=== PATIENT | male | born 1950 | race Caucasian/White ===

== ENCOUNTER 2016-06-16 10:02 | Inpatient (IN) | payer OTHER ==
[2016-06-16] VITALS (8 sets, daily range): BP systolic 130–160; BP diastolic 79–94; PULSE 58–88; RESP 10–20; O2SAT 96–98
[~2016-06-16] VITALS: Ht 195.6 cm; Wt 93.8 kg
--- NOTE | 2016-06-16 06:52 | PCM.HPANE ---
Patient Data Surgeon Admitting Provider: Attending Provider:Rand Echavarria MD Primary Care Physician:Avril Saldana MD Other Provider: Reason for Visit Prostate Cancer PROSTATE CANCER Ht/WT & BMI Height (Feet): 6 Height (Inches): 5 Weight (Kilograms): 102.058 Body Mass Index 26.00 Allergies Coded Allergies: Sulfa (Sulfonamide Antibiotics) (Verified Allergy, Severe, RASH, 06/11/16) lisinopril (Verified Allergy, Severe, cough, 06/16/16) buspirone (Verified Allergy, Unknown, UNKNOWN, 06/11/16) cyclobenzaprine (Verified Allergy, Unknown, UNKNOWN, 06/11/16) metoprolol (Verified Allergy, Unknown, UNKNOWN, 06/11/16) venlafaxine (Verified Allergy, Unknown, UNKNOWN, 06/11/16) escitalopram (Verified Adverse Reaction, Severe, HTN, 06/11/16) Past Anesthesia History Anesthesia History: Denies:: Abnormal Airway, Anesthesia Reactions, Difficult Intubation, Fam Anesthesia Reaction, Fam Malignant Hypertherm, Malignant Hyperthermia Diabetes History Hx Diabetes?: No MRSA MRSA: No Medications Hypertension Medication: Yes (AMLODIPINE) Reported Medications Lorazepam 1 Mg Tablet1 Mg PO TID PRN For Anxiety Ref 0 06/11/16 Amlodipine 10 Mg [id number] Mg PO DAILY Ref 0 06/11/16 Zolpidem (Ambien)10 Mg [id number] Mg PO HS PRN For Insomnia Ref 0 06/11/16 Discontinued Reported Medications Duloxetine-Expunged Drug, Do Not Renew! (Cymbalta-Expunged Drug, Do Not Renew!) 30 Mg Capsule.dr60 Mg PO DAILY #60 CAP Ref 0 For Mental Wellbeing. 05/30/13 AmLODIPine-Expunged Drug, Do Not Renew! 10 Mg Cadvln32 Mg PO DAILY 05/30/13 [Ibuprofen] No Conflict Check TAKE 1-2 TABLETS BY MOUTH EVERY 4-6 HOURS NEEDED WITH FOOD 03/03/13 Temazepam-Expunged Drug, Do Not Renew! (Restoril-Expunged Drug, Do Not Renew!) 15 Mg [id number] Mg PO HS PRN 03/03/13 History History of ENT Problems?: Yes HEENT History: Positive for:: Sinus Problem (ALLERGIC RHINITIS) Denies:: Abnormal Airway Difficult Intubation Hearing Problem Hx of Heart Problems?: Yes Cardiovascular History: Positive for:: Hypertension (HYPERLIPIDEMIA) Denies:: Irregular Heartbeat Hx of Respiratory Problem?: Yes Respiratory History: Positive for:: Use of C-PAP Machine (MARILEE+ W/ CPAP SLEEP STUDY 06/2010) Hx Neurologic Problems?: No Neurological History: Denies:: CVA Hx of GI Problems?: Yes Gastrointestinal History: Denies:: Rectal Bleeding (HX COLON POLYPS, HEMORRHOIDS) Hx of Problems?: Yes Other Pertinent History: ED Male Hx: Positive for:: Prostate Problems (PROSTATE CA=CURRENT PROBLEM) Denies:: Scrotal Mass Testicular Surgery Skin History: Denies:: History Skin Disorders? Pressure Ulcers Hx Musculoskeletal Problems?: Yes Musculoskeletal History: Positive for:: Musculoskeletal Trauma (S/P RT KNEE SCOPE HX FX 5TH METATARSAL,TRIGGER FINGER,RT SHOULDER PAIN) Osteoarthritis (SPINE) Denies:: Back Injury (SPINAL STENOSIS) Hx of Psycho/Social Problems?: Yes Psycho Social History: Positive for:: Anxiety Hx Depression (REMOTE) Hx Surgeries?: Yes (L3-L5 LAMI,2 OTHER LUMBAR SURGERIES,R KNEE SCOPE) Hx Any Other Health Problems?: Yes Other History: Positive for:: Cancer (PROSTATE) Denies:: Endocrine Disease Hospitalization Thyroid Disease Hx Diabetes: No Hx Alcohol Use: YesAlcoholic Drinks Per Day: 2/DAYHx Substance Use: NoHave You Smoked inLast 12 mo: No Stop/Bang S-Snoring: Do You Snore Loudly: Yes T-Tired: feel tired, fatigued: Yes O-Obsered: Observed not breath: Yes P-Blood Pressure: treated: Yes B- Body Mass Index > 35 kg/m2: No A- Age over 50: Yes N- Neck Large Circumference: No G- Gender Male: Yes MARILEE Total Score: 6 Risk Assessment Category Category 1A: Patient has history of documented sleep apnea, and HAS NOT received any narcotic, sedative or anesthesia administration during this stay. Category 1B: Patient has history of documented sleep apnea, and HAS received any narcotic , sedative or anesthesia administration during this stay Category 2: Patient has SUSPECTED Obstructive Sleep Apnea, and HAS received any narcotic , sedative or anesthesia administration during this stay. Category 3: Patient has SUSPECTED Obstructive Sleep Apnea and HAS NOT received narcotic, sedative or anesthesia administration during this stay. Category 4: Outpatient in Procedural Areas with known sleep apnea or who screen positive for High Risk via the STOP/BANG questionnaire. Exam Exam General Appearance: Alert, Oriented X3, Cooperative, No Acute Distress HEENT/AIRWAY: MP 2, Neck Movement (from), Mouth Opening (wnl) Lungs: Clear to Auscultation Heart: Exam Unremarkable Plan Impression Patient chart reviewed, patient interviewed and anesthestic plan with risks, benefits, and alternatives discussed, and informed consent obtained. ASA Physical Status: ASA2 Mod Systemic Disease Anesthetic Plan: GA, SAB Bene/Risks/Altern/Consents: Yes HP Complete Prior to Induction: Yes Francisco Javier Farzier MD Jun 16, 2016 06:52
[~2016-06-16 10:02] MED LIST: AMLO10TA3 PO; Acetaminophen IV 1,000 MG in IV Premix 1 EACH IV ONE; Bupivacaine Liposome 1.3% 20 mL Inj INFILTRATE SCH; CeFAZolin Inj 2 GM in IV Premix 1 EACH IV ONE; LORA1TAB PO; Lactated Ringer's 1,000 ML IV ONE; ZLP10T PO
[2016-06-16 11:08] LABS: BASOPHILS % (AUTO) 0.2 % (0-3); EOSINOPHILS % (AUTO) 1.3 % (0-5); MONOCYTES % (AUTO) 8.4 % (4-12); Mean Corpuscular Hemoglobin 30.9 pg (27.0-35.0); Mean Corpuscular Volume 88.7 fL (81-100); NEUTROPHILS % (AUTO) 70.1 % (40-74); Platelet Count 272 bil/L (150-400)
[2016-06-16] MEDS ORDERED: Ondansetron 2 mg/mL 2 mL Inj IVPUSH PRN ×2 (12:30→14:45)
[2016-06-16] MEDS ORDERED: fentaNYL-PF 50 mCg/mL 2 mL Inj IVPUSH PRN (12:30)
[2016-06-16] MEDS ORDERED: EPHEDrine Sulfate 50 mg/mL Inj IVPUSH PRN ×2 (12:30→12:50)
[2016-06-16] MEDS ORDERED: EPHEDrine Sulfate 50 mg/mL Inj IM PRN (12:30)
[2016-06-16] MEDS ORDERED: hydrOXYzine Inj 25 MG/1 mL SDV IM PRN (12:30)
[2016-06-16] MEDS ORDERED: Dexamethasone 4 mg/mL Inj IVPUSH PRN (12:30)
[2016-06-16] MEDS ORDERED: Lactated Ringer's 1,000 ML IV SCH (12:30)
[2016-06-16] MEDS ORDERED: Phenylephrine 10,000 mCg/mL Inj IVPUSH PRN (12:30)
[2016-06-16] MEDS ORDERED: HYDROmorphone 1 mg/mL Inj IVPUSH PRN ×2 (12:30→14:45)
[2016-06-16] MEDS ORDERED: hydrALAZINE 20 mg/mL Inj IVPUSH PRN (12:30)
[2016-06-16] MEDS ORDERED: Atropine 0.4 mg/mL Inj IVPUSH PRN (12:30)
[2016-06-16] MEDS ORDERED: Lactated Ringer's 500 ML IV PRN (12:30)
[2016-06-16] MEDS ORDERED: Gelatin Sponge SZ 50 TOPICAL ONE (13:30)
[2016-06-16 14:11] LABS: APPEARANCE,URINE HAZY (CLEAR,HAZY); COLOR,URINE STRAW (YELLOW); OCCULT BLOOD,URINE SMALL (NEGATIVE); UROBILINOGEN,URINE NORMAL (NORMAL)
[2016-06-16] MEDS ORDERED: MetoCLOpramide 5 mg/mL 2 mL Inj IVPUSH PRN (14:45)
--- NOTE | 2016-06-16 15:57 | PCM.ANEP1 ---
Post Anesthesia Phase 1 PACU Phase 1 Assessment Vital Signs Vital Signs Date Time Temp Pulse Resp B/P Pulse Ox O2 Delivery O2 Flow Rate FiO2 06/16/16 15:35 58 12 136/80 97 Room Air 06/16/16 15:20 64 10 153/80 96 Room Air 06/16/16 15:07 66 10 130/80 96 Room Air 06/16/16 15:00 36.3 76 14 142/88 96 Room Air 06/16/16 10:25 36.5 82 16 160/94 98 Room Air 06/16/16 10:22 CPAP/BIPAP Anesthetic Administered: GA Level of Alertness: Awake, talking ALMAGUER's with Equal Strength: No (moves lower extremeties, Feet.) Pain: No Nausea or Vomiting: No Oxygen Delivery: Room Air Lungs: Normal Air Movement Francisco Javier Frazier MD Jun 16, 2016 15:57
[2016-06-16] MEDS ORDERED: Morphine PF 1 mg/mL 10 mL Inj ONE (16:06)
[2016-06-16] MEDS ORDERED: fentaNYL-PF 50 mCg/mL 2 mL Inj ONE (16:06)
--- NOTE | 2016-06-16 17:03 | NUR ---
Arrival on OSC Pt transferred to OSC from PACU at 1555 hrs. Alert and oriented x 3. VSS. Two peripheral IVs patent and asymptomatic. No complaints of pain. All personal possessions with pt and placed in room closet. Family with pt. Care continues.
--- NOTE | 2016-06-16 17:45 | PCM.ANEP2 ---
Post Anesthesia Evaluation ASA/CMS Post Anesthesia VS in Patient's Normal Range?: Yes Resp Stable; Airway Patent?: Yes CV Function & Hydration Stable: Yes Mental Status Recovered?: Yes Pain control Satisfactory?: Yes N/V Control Satisfactory?: Yes Francisco Javier Frazier MD Jun 16, 2016 17:45
[2016-06-16] MEDS: Lactated Ringer's 1,000 ML IV SCH ×2 (18:21→22:43)
[2016-06-16] MEDS: Acetaminophen IV 1,000 MG in IV Premix 1 EACH IV SCH (20:35)
[2016-06-17 05:37] VITALS: BP 140/83; PULSE 67; RESP 18; O2SAT 98
--- NOTE | 2016-06-17 05:52 | NUR ---
Pain Pt states APAP does not relieve all pain, oral pain meds have good relief. Both IVs patent, forearm running until completion of 1L LR and then saline lock- patient is drinking sufficient water and ice chips. Urine from moderately pink to clear with pink tinge. GI hypoactive, no complaints of N/V/D. Incisions CDI. Family visiting and brought him belongings and CPAP with adequate cord- noted in chart document. Care continues
[2016-06-17] MEDS: Lactated Ringer's 1,000 ML IV SCH ×3 (06:43→22:43)
--- NOTE | 2016-06-17 07:23 | PROG NOTE ---
[address] [address] PROGRESS NOTE PATIENT: DORCAS SHORT : 1950 MR#: [id number] ADMIT: 06/16/2016 JOB ID: [id number] DATE: 06/17/2016 PROGRESS NOTE: Postop day #1 status post radical retropubic prostatectomy. SUBJECTIVE: Overall an uneventful night. He did not sleep well due to incumbrance by tubing and monitoring and interruptions by nursing staff. No significant pain complaints. He tolerated a general diet for dinner. He is passing small flatus. OBJECTIVE: Afebrile. Vital signs are stable; 8 hour IMER output 120 cc; 8 hour urine output 2230 cc. He is resting comfortably and sitting up in bed in no distress. Head and neck exam unremarkable. Chest equal and nonlabored bilaterally. Heart rate is regular. Abdomen is scaphoid, soft. Dressing and IMER drain intact (serosanguineous). Estrada very light pink coloration with no clots. Genitalia are status post circumcision, unremarkable. Extremities no pallor, edema, clubbing, or cyanosis. SCDs are in place. IMPRESSION: Stable postoperative day #1 status post radical prostatectomy. PLAN: 1. Increase diet and activity. 2. Catheter care and use instruction. 3. Pathology pending.
--- NOTE | 2016-06-17 07:29 | OP ---
[address] [address] OPERATIVE REPORT PATIENT: DORCAS SHORT : 1950 MR#: [id number] ADMIT: 06/16/2016 JOB ID: [id number] DATE OF SURGERY: 06/16/2016 PREOPERATIVE DIAGNOSIS(ES): Carcinoma of the prostate. POSTOPERATIVE DIAGNOSIS(ES): Carcinoma of the prostate. OPERATION PERFORMED: Radical retropubic prostatectomy, LigaSure Impact device. SURGEON: Rand Echavarria MD ANESTHESIOLOGIST: Francisco Javier Frazier MD SILK EXAMINER: ELIZABETH Amador ANESTHESIA: General plus Duramorph spinal. PROCEDURE SUMMARY: The patient was positioned in supine and the abdomen, genitalia, and groin were prepped and draped in sterile fashion. A 22-Cameroonian Estrada catheter was inserted in the lower urinary tract. A midline infraumbilical incision was then made through the structures of the midline abdominal wall to the preperitoneal space. The anterior pelvis and the space of Retzius were then exposed using blunt technique and was extended down the lateral aspects of the prostate. Next, hemostatic jwduyl-iv-iclet ligatures of 2-0 Biosyn were then placed distally at the dorsal venous complex and Santorini's plexus. Additional interrupted jisjkh-rk-cqspzd were placed dorsally at the proximal prostate, as well as laterally for around large tributary veins. Next, a transverse prostatotomy was performed through the capsule and the adenoma was then identified and developed using a combination of blunt and sharp dissection. The adenoma was delivered from the prostate proper and was submitted to Pathology for routine gross and microscopic examination. The prostatic defect was then packed with a lap sponge and held under pressure for about 5 minutes. Next, the bladder neck was repaired using interrupted vdwpci-os-hskbx 2-0 Biosyn. The posterior bladder neck was then brought down distally and sutured to the capsule just proximal to the membranous urethra using a wsoaax-sz-uaamn stitch. The 22-Cameroonian catheter was then re-advanced into the bladder. The capsule was then closed using running 2-0 Biosyn. Hemostasis was excellent. The balloon was then filled with 30 mL and the bladder was irrigated clear. The catheter was then put to gravity drainage. Next, a 15-Cameroonian Damian drain was positioned in the space of Retzius and brought out through a separate stab incision to the right of the midline. It was sutured to the level of skin with 2-0 silk. Next, the midline rectus fascia was closed with running 0 Maxon. The subcutaneous layer was reapproximated using 2-0 Biosyn. Finally, the skin was reapproximated using a 4-0 subcuticular Monocryl. The skin surface was cleaned and dried. A Telfa pad was applied longitudinally over the incision and OpSite over this. The drain was placed to bulb self suction. The patient was then awakened, transferred to [facility], and transferred to recovery area in awake and stable condition. He tolerated the procedure well.
[2016-06-17] MEDS: Acetaminophen IV 1,000 MG in IV Premix 1 EACH IV SCH ×4 (10:45→23:48)
[2016-06-17 10:59] VITALS: PULSE 75; O2SAT 100
--- NOTE | 2016-06-17 12:51 | NUR ---
Social Work Screen Note and Discharge: SW acknowledged order for discharge. SW met with patient at bedside to discuss discharge plan. Patient is a 65 year old male admitted on 06/16/16 for prostate cancer. Patient payer as [employer]. Patient has no residential nor [place] benefits. Patient PCP as MD Win. Patient resides in [facility] with Cricket, . Patient states [facility] choice as [facility]. Patient has no HHC, SNF, or DME history. Patient has AD at home and SW encouraged patient to bring in copy. Patient states to assist with care needs at home. Pending ambulation and further clinical course, SW to follow to determine if further needs arise. SW to follow. PLAN: Home with , via POV. SW to follow pending further clinical course. Paula MAYORGA
[2016-06-17 12:56] VITALS: BP 161/84; PULSE 74; RESP 16; O2SAT 97
--- NOTE | 2016-06-17 16:34 | NUR ---
Post op drainage Pt noticed a small amount of drainage coming from the end of his penis around the Estrada catheter. This occurred when pt got up to ambulate. Stains noted on the front of his gown appeared serosanguineous. Pt concerned that this was a problem. Called Dr. Echavarria to inform him of this finding. He said this was to be expected and is not unusual. He instructed me to tell pt to perform Kegel exercises and to wear a pad to collect the drainage. Will reassure pt that this drainage is normal. Care continues. Addendum: 06/17/16 at 1903 by ASHA JOSEPH RN Pt also c/o 2 cm round area of swelling on the upper anterior scrotum. Pt stated it was not there prior to surgery. No additional pain at this site; no drainage. Called Dr Echavarria again to notifiy him of this finding. He will examine pt in the a.m.
[2016-06-17] MEDS: Polyethylene Glycol (PEG) 17 Gm Powder PO PRN (18:48)
[2016-06-17 20:07] VITALS: BP 177/88; PULSE 71; RESP 18; O2SAT 97
[2016-06-17] MEDS ORDERED: Alum-Mag Hydrox-Simeth 30 mL Suspension PO PRN (23:20)
[2016-06-18 00:21] VITALS: BP 177/89
[2016-06-18 02:30] VITALS: BP 158/78
[2016-06-18] MEDS: Polyethylene Glycol (PEG) 17 Gm Powder PO PRN (04:02)
--- NOTE | 2016-06-18 04:13 | NUR ---
Pain/activity Pt reporting increased pressure to abdomen and a decrease in urine flow through german. Manually irrigated german x2, no clots seen but flow established and urine is very light pink-pale. Lower abdominal dressing changed with gauze and tegaderm. IMER drain patent with serosanguineous fluid. Pt also reported acid reflux, MD called and ordered Tums and Maalox. Pt given Tums with no further complaints. Pain has been managed with Dilaudid PO 4mg as "Tylenol was not effective" per pt. This morning pt reports "feeling like [he] will have a bowel movement." Pt did request suppository to help this process. After waiting 15min with no result, pt asked to have miralax. If in 30 min and no BM, will try another suppository as per written MD orders. Pt walked 4x in the hallway with walker, steady on feet.
[2016-06-18 05:02] VITALS: BP 149/79; PULSE 70; RESP 18; O2SAT 98
[2016-06-18] MEDS: Lactated Ringer's 1,000 ML IV SCH (06:43)
--- NOTE | 2016-06-18 08:21 | DIS ---
[address] [address] DISCHARGE SUMMARY PATIENT: DORCAS SHORT : 1950 MR#: [id number] ADMIT: 06/16/2016 JOB ID: [id number] DIS: 06/18/2016 ADMITTING DIAGNOSIS: Carcinoma of the prostate. DISCHARGE DIAGNOSIS: Carcinoma of the prostate. PROCEDURE PERFORMED IN HOSPITAL: Radical prostatectomy. HOSPITAL SUMMARY: The patient was admitted on the morning of June 16, 2016 underwent uncomplicated radical retropubic prostatectomy and bilateral pelvic lymphadenectomy under general and Duramorph spinal anesthesia. His postop recovery was largely unremarkable in that he tolerated a general diet the evening immediately post surgery. Thereafter had tolerated general diet. Had excellent control of pain with minimal narcotic analgesic. He was able to ambulate unassisted beginning the night immediately postoperative. On the morning of June 18, 2016, he is stable for discharge. He was provided prescriptions for ciprofloxacin, oxycodone and Lovenox with the precautions and intake instructions. He was provided routine post radical prostatectomy activity, driving, lifting and hygiene instructions and restrictions. A postop appointment is requested in my office in six weeks with a PSA and PVR. Pathology is pending at discharge and will be discussed by phone in the coming 2-3 days.
[2016-06-18 08:30] VITALS: BP 125/74; PULSE 91; RESP 15; O2SAT 98
--- NOTE | 2016-06-18 13:59 | NUR ---
Discharge Pt was discharge from OSC room 1026 at 1355 via private vehicle home with family. All discharge teaching and instructions done with at bedside. Both IV d/c'd intact. Jim drain D/C'd intact. Estrada catheter changed to leg bag and patent and draining to gravity. Larger bag given for nighttime use. All teaching and instructions done with Estrada care and how to d/c Estrada at home. All questions answered. Hard copy of RX with pt. No items in the safe and not items in the pharmacy. Pt instructed on how to administer Lovenox injections.
--- NOTE | 2016-06-18 16:13 | NUR ---
Social Work DIscharge: SW met with patient at bedside to discuss discharge plan. Patient states plan as home with who to provide support and care. Patient states being independent with needs and denied HHC need. Patient also declined need for walker offered. Patient states having no other identified discharge needs at this time. SW to follow. PLAN: Home with , via POV. No other needs. Paula MAYORGA
--- NOTE | 2016-06-20 11:18 | PATH ---
SURGICAL PATHOLOGY Attending Physician:Rand Echavarria MD CASE STATUS: Signed Out PATIENT NAME: DORCAS SHORT PID: [id number] : 1950 DATE COLLECTED:06/16/2016 00:00 SPECIMEN: 1: Lymph Node, Biopsy 2: Lymph Node, Biopsy 3: Prostate, Radical Resection CLINICAL HISTORY: PROSTATE CANCER 1). RIGHT PELVIC LYMPH NODES 2). LEFT PELVIC LYMPH NODES 3). PROSTATE FINAL DIAGNOSIS: 1.RIGHT PELVIC LYMPH NODE: ONE LYMPH NODE NEGATIVE FOR MALIGNANCY. 2.LEFT PELVIC LYMPH NODE: ONE LYMPH NODE NEGATIVE FOR MALIGNANCY. 3.RADICAL PROSTATECTOMY SPECIMEN: INVASIVE CARCINOMA WITH THE FOLLOWING FEATURES: 1. PROSTATE SIZE: 38.2 GRAMS MEASURING 3.8 X 3.8 X 4.5 CM. 2. TUMOR HISTOLOGIC TYPE: ADENOCARCINOMA, ACINAR TYPE. 3. TUMOR HISTOLOGIC GRADE (SHANKAR SCORE): 3 + 3 = 6. 4. TUMOR QUANTITATION: TUMOR IS BILATERAL WITH APPROXIMATELY 10% OF THE SECTIONS INVOLVED WITH TUMOR. 5. TUMOR MULTICENTRICITY: APPEARS TO BE UNICENTRIC, INVOLVING THE RIGHT POSTERIOR AND LEFT POSTERIOR AREAS. 6. SEMINAL VESICLE INVASION: NEGATIVE. 7. PERINEURAL INVASION: NEGATIVE. 8. VASCULAR CHANNEL INVASION: NEGATIVE. 9. SURGICAL MARGINS: WIDELY FREE OF TUMOR (NEGATIVE FOR EVIDENCE OF CAPSULAR INVASION). 10. LYMPH NODES: TWO LYMPH NODES NEGATIVE FOR MALIGNANCY (SEE PARTS 1 AND 2). 11. ADDITIONAL FINDINGS: NODULAR HYPERPLASIA OF GLANDS AND STROMA. 12. PATHOLOGIC STAGE (TNM): pT2c, pN0. ICD10 code C61 GROSS DESCRIPTION: The specimens are received in formalin, labeled with the patient's name, and sublabeled as the following: (1) right pelvic lymph nodes; (2) left pelvic lymph nodes; (3) prostate. (1) The specimen consists of a lymph node (5.2 x 0.8 x 0.8 cm). Section code: (1A-1D) one lymph node, serially sectioned. Specimen entirely submitted. (2) The specimen consists of a lymph node (4.5 x 1.5 x 0.8 cm). Section code: (2A-2C) one lymph node, serially sectioned. Specimen entirely submitted. (3) The specimen consists of a prostate gland (38.2 g, 3.8 cm AP, 3.8 cm SI, 4.5 cm ML) with seminal vesicles (right-2.5 x 0.9 x 0.5 cm; left-2.8 x 1.1 x 0.3 cm) and vasa deferentia (right: length-3.6, diameter-0.4 cm; left: length-3.3 cm, diameter-0.3 cm). The prostate gland is serially sectioned base to apex into 10 slices. The parenchyma is ramos-white and rubbery with a whorled multinodular appearance. A ramos-yellow irregular firm area (0.5 x 0.5 x 0.3 cm), within slice #9, is 1.3 cm from the urethral orifice, 3.0 cm from the right anterior, 2.5 cm from the right posterior, 1.3 cm from the left anterior, and less than 0.1 cm from the left posterior resection margins. A bright white solid firm round well-circumscribed nodule (0.2 cm), within the apex, is 0.5 cm from the urethral orifice, 1.2 cm from the right anterior and posterior, and 0.3 cm from the left anterior and posterior resection margins. No masses or lesions are identified. Ink code: purple-right anterior; yellow-right posterior; blue-left anterior; green-left posterior; orange-urethral orifice. Section code: (3A) right seminal vesicle and vasa deferentia-base junction; (3B) left seminal vesicle and vasa deferentia-base junction; (3C) base, perpendicularly sectioned and submitted right to left, entirely submitted; (3D-3E) slice #2, bisected and submitted right to left; entirely submitted; (3F-3G) slice #3, quartered, anterior half submitted right to left; (3H) slice #4, quartered, right anterior submitted; (3I) slice #5, quartered, left posterior submitted; (3J-3M) slice #6, quartered, entirely submitted; (3N) slice #9, bisected, left half submitted; (3O-3P) apex, perpendicularly sectioned, entirely submitted. 06/17/16 MICRO DESCRIPTION: Sections from part 3 are of prostate gland. There is adenocarcinoma present in the right posterior region with a [place] score pattern of 3 + 3 = 6. On the left side posterior region there are atypical small glands suggestive of carcinoma. Immunohistochemistry is performed in these areas, and reveal these glands to be negative for both high molecular weight cytokeratin and P63, confirming that they are indeed areas of adenocarcinoma. Approximately 10% of the sections of prostate are involved with tumor. There is no evidence of perineural space invasion or vascular invasion. ICD-9 CODES: CPT CODES: 1: 60432 2: 44522 3: 20330, 00006, 51545 Electronically Signed Out Osvaldo Orozco MD [facility] Pathology [facility] [address], [place] [address] Technical component performed at [facility], [address], [place], [address]
== END 2016-06-18 13:57 | disposition home or self-care (01) | DRG 708 ==
LOC: SAS 10:02 → OSC 16:05
PROVIDERS: ADMIT Specialist; ATTEND Specialist
PROC: 0VT30ZZ Resection of Bilateral Seminal Vesicles, Open Approach (ICD-10-PCS; 2016-06-16)
PROC: 07BC0ZX Excision of Pelvis Lymphatic, Open Approach, Diagnostic (ICD-10-PCS; 2016-06-16)
PROC: 0VT00ZZ Resection of Prostate, Open Approach (ICD-10-PCS; principal; 2016-06-16 12:00)
DX: C61 Malignant neoplasm of prostate (principal); I10 Essential (primary) hypertension; G47.33 Obstructive sleep apnea (adult) (pediatric)